=== PATIENT | female | born 1950 | race Caucasian/White ===

== ENCOUNTER → 2023-09-09 13:35 | Outpatient (CLI) | payer OTHER, SELFPAY ==
--- NOTE | 2023-09-09 13:39 | DI.CT.S_ITS ---
PROCEDURE: CT LE LT W CON INDICATIONS: Left ankle and foot deformity surgical planning TECHNIQUE: Noncontrast 1-1.5 mm axial sections acquired from above the tibiotalar joint to the bottom of the calcaneus, with coronal and sagittal reformats. COMPARISON: [facility], CR, XR FOOT 3 VIEWS WEIGHT BEARING RIGHT, 07/23/2023, 14:50. FINDINGS: Image quality: Excellent. Bones: Hindfoot varus Metatarsal adductus. Moderate degenerate changes of the 1st metatarsophalangeal joint. Small sclerotic lesion in the 4th metatarsal distal diaphysis, nonspecific and may represent a bone island. Chronic changes of the 5th metatarsal, likely representing a healed fracture. 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 Moderate degenerative changes of the posterior subtalar joint. Large Stieda process.. Moderate degenerative changes at the anterior subtalar joint. No acute fracture or dislocation. Soft tissues: Moderate fatty atrophy of the flexor hallucis longus at the level of the distal leg. Large tibiotalar and subtalar effusion. Large tenosynovitis of the flexor tendons. The peroneal and extensor tendons are unremarkable. The distal Achilles tendon is unremarkable. IMPRESSION: 1. Hindfoot varus with metatarsus adductus. 2. 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 Moderate degenerative changes of the subtalar joint. 3. Large tibiotalar and subtalar fusion. Large tenosynovitis of the flexor tendons. Dictated by: Fatuma Pratt M.D. on 09/09/2023 at 14:51 Approved by: Fatuma Pratt M.D. on 09/09/2023 at 15:01
== END ==
LOC: CT 13:38
PROVIDERS: PCP Internal Medicine; Referring Provider Orthopaedic Surgery Foot and Ankle Surgery; Visit Provider Orthopaedic Surgery Foot and Ankle Surgery
DX: M21.6X2 Other acquired deformities of left foot (principal); M65.872 Other synovitis and tenosynovitis, left ankle and foot; M24.672 Ankylosis, left ankle; M24.575 Contracture, left foot
CPT/HCPCS: 73700

== ENCOUNTER → 2023-10-21 15:10 | Outpatient (CLI) | payer OTHER, SELFPAY ==
--- NOTE | 2023-10-21 15:35 | EKG_ITS ---
[address] [address] Test Date: 2023-10-21 Pat Name: Mame Zamarripa Department: [facility] Room: Gender: Female Data Review Specialist: ANGÉLICA : 1950 Requested By: Order Number: [id number] Reading MD: Oumar Cantu Measurements Intervals [place] Rate: 71 P: 51 SC: 156 QRS: -24 QRSD: 82 T: 37 QT: 402 QTc: 436 Interpretive Statements Normal sinus rhythm Electronically Signed On 10-23-2023 18:36:04 PDT by Oumar Cantu
[2023-10-21 16:28] LABS: Add Manual Diff / Slide Review NO; Basophils Absolute Auto 0 /uL (0-100); Basophils Percent Auto 0.7 % (0-2); Eosinophils Absolute Auto 300 /uL (0-450); Eosinophils Percent Auto 6.7 % (2-4); Hematocrit 37.6 % (36-46); Hemoglobin 12.7 g/dL (12.0-16.0); Lymphocytes Absolute Auto 1400 /uL (1100-4500); Lymphocytes Percent Auto 27.4 % (25-40); Mean Corpuscular HGB Conc 33.8 % (30-36); Mean Corpuscular Hemoglobin 28.3 PG (26-34); Mean Corpuscular Volume 83.8 fL (80-100); Monocytes Absolute Auto 500 /uL (0-900); Monocytes Percent Auto 8.9 % (3-14); Neutrophils Absolute Auto 2900 /uL (1500-7000); Neutrophils Percent Auto 56.3 % (50-75); Platelet Count 231 X10^3/uL (150-400); Red Blood Cell Count 4.48 X10^6/uL (4.0-5.2); Red Cell Distribution Width 14.4 % (11.6-14.8); White Blood Cell Count 5.2 X10^3/uL (4.5-11.0)
[2023-10-21 16:53] LABS: BUN Creatinine Ratio 25.5 (6-22); Blood Urea Nitrogen 24 mg/dL (7-17); Calcium 8.9 mg/dL (8.4-10.2); Carbon Dioxide 27 mmol/L (22-32); Chloride 109 mmol/L (98-107); Estimated Glomerular Filt Rate > 60 mL/min (>60); Glucose 99 mg/dL (80-110); HEMOLYSIS < 15 (0-50); Potassium 4.3 mmol/L (3.4-5.1); Sodium 138 mmol/L (137-145)
== END ==
PROVIDERS: PCP Internal Medicine; Referring Provider Orthopaedic Surgery Foot and Ankle Surgery; Visit Provider Orthopaedic Surgery Foot and Ankle Surgery
DX: Z01.818 Encounter for other preprocedural examination (principal); Z01.812 Encounter for preprocedural laboratory examination
CPT/HCPCS: 36415; 80048; 85025; 93005

== ENCOUNTER 2023-11-20 07:05 | Day surgery (SDC) | payer OTHER, SELFPAY ==
[2023-11-13 14:46] VITALS: BMI 26.6
[2023-11-20] VITALS (18 sets, daily range): BP systolic 106–152; BP diastolic 75–100; PULSE 61–100; RESP 12–20; TEMP 36.1–37.1; O2SAT 93–100; BMI 26.6
--- NOTE | 2023-11-20 | DI.RAD.S_ITS ---
PROCEDURE: XR ANKLE LT MIN 3V INDICATIONS: INTRAOP + OPEN ANKLE FUSION LEFT TECHNIQUE: Eight intraoperative fluoroscopic images COMPARISON: None. FINDINGS: Eight intraoperative fluoroscopic images of ORIF of the left ankle. Fluoroscopic time is 8.04 seconds. Please see operative report for details. IMPRESSION: ORIF of the left ankle. Please see operative report for details. Dictated by: Esme Vera M.D. on 11/20/2023 at 17:04 Approved by: Esme Vera M.D. on 11/20/2023 at 17:05
--- NOTE | 2023-11-20 08:02 | PM.PREOP ---
Pre-operative Note Interval Note History & Physical reviewed/Exam performed by Physician: Yes Changes to H&P: No
[2023-11-20] MEDS: LACTATED RINGERS 1,000 ML 42 ML IV ×2 (08:05→11:13)
--- NOTE | 2023-11-20 08:09 | PM.OP.1 ---
Operative Date/Time/Diagnoses Date of procedure: 11/20/23 Time of procedure: 09:30 Pre-op diagnosis: Left ankle arthritis, left subtalar arthritis, left talonavicular arthritis and calcaneocuboid arthritis, Achilles contracture, hindfoot varus deformity Post-op diagnosis: same Procedure & Clinicians Procedure: Vasquez talar arthrodesis left ankle CPT code 68874 left Fusion cuboid calcaneal joint CPT code 45751 left Osteotomy fibula distal CPT code 08757 left Open lengthening left Achilles tendon CPT code 64061 left separate site modifier 59 Same procedure as scheduled: Yes Indications: The patient is a 73-year-old female with a 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 And equinus contracture. 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 She may require staged forefoot correction following her hindfoot correction-if this is necessary it would be no sooner than least 6 weeks after the hindfoot fusion to allow for incision healing. The risks and benefits of the procedure have been discussed with the patient and given the opportunity to ask questions. The risks of surgery include but are not limited to infection, malunion, nonunion, persistence of pain, damage to nerves and blood vessels, posttraumatic arthritis, DVT, PE, cardiopulmonary complications and . The patient expressed a thorough understanding of the risks and benefits of surgery and has elected to proceed. Consent was signed. Patient will utilize aspirin 325 mg daily postop starting postop day 1 for DVT prophylaxis We discussed the use of bone graft. During the operation, the services of a physician ophthalmic surgical assistant were medically indicated and necessary to provide the exposure of the operative site for the surgical procedure and to maintain the limb in a proper position to carry out the operation safely and efficiently. Without a qualified carpenter assistant installer being present this would extended the operative procedure and made the procedure technically more difficult to perform. Surgeon: Fanta Jeffers Transportation Sales Consultant: Arik Diaz Anesthesia Type: General, Peripheral nerve block and Local Operative Notes Findings: Rigid hindfoot varus and adductus deformity equinovarus. End-stage tibiotalar and hindfoot arthritis, Achilles contracture Closure Type: primary Specimen(s): none sent Prosthetic devices, grafts, tissues, transplants, or devices: Stacie Biomet Greene nail 150 mm x 10 mm Interlocking screws 5 mm x 44 mm, 5 mm x 28 mm, 5 mm x 26 mm, 5 mm x 44 mm, 5 mm x 65 mm, Biomet Stacie stratum foot plating system small talonavicular plate with 3.5 locking and nonlocking screws 6.5 and 4.5 cannulated screws from the Stacie Biomet set 3 cc Azra augment bone graft 15 cc of cancellous chips Estimated Blood Loss (mL): 200 Blood products transfused: none Tourniquet time (min): 189 Procedure in detail: Patient was seen in the preoperative area the site of surgery marked informed consent confirmed this was the left lower extremity. A preoperative regional block was placed by the anesthesia team for postoperative pain control. The patient was brought back to the operating positioned supine. A Clark was placed. A well-padded thigh tourniquet was placed. All bony prominences were well padded. Anesthetic was administered. An SCD was placed on the contralateral lower extremity. Attention was turned to the left leg left leg was prepped and draped in standard sterile fashion a formal time-out procedure was performed confirming the patient's side and site of surgery administration of appropriate preoperative antibiotic. All were in agreement. Antibiotics were redosed at 4 hours, appropriately. Attention turned to the leg there was an equinus contracture. The leg was elevated held in with a dorsiflexion stress. A 3 separate open incision [place] style brenda section lengthening of the Achilles was performed with separate incisions 2 cm apart the distal and proximal incisions were brenda sections to the medial side and the middle incision was a brenda section to the lateral side. This provided a palpable and audible stretch and increased range of motion appropriate with the Achilles lengthening. Attention turned to the leg Esmarch was used for exsanguination and the tourniquet raised on the thigh to 250 mm of mercury. This stayed elevated for 2 hours and then was let down for an hour and then re elevated for another 69 minutes. Long incision laterally was made over the distal fibula this was taken down to the bone with dissection the peroneal tendons were reflected posteriorly and the periosteum off the fibula anterior and posterior. Incision was extended distally to the level of the calcaneocuboid joint. The ankle subtalar and calcaneal cuboid joints was exposed. Next attention was turned medially and a separate incision was made over the medial malleolus and medial ankle periosteal dissection was taken anterior and posterior to the tibia. The posterior tibialis tendon was released at the level of the medial malleolus. Careful dissection was taken anterior and posterior to the distal tibia at the level of the tibiotalar joint and the eburnated bone of the joint was exposed. A K-wire was used through the distal fibula just across the distal fibula and subchondral area of the tibia to the medial malleolus for the level of the osteotomy of the distal fibula as well as a flat cut of the tibia across the subchondral bone and medial malleolus to help with the correction of the deformity. This was completed and the bone removed and remaining articular surfaces removed. Next a guidewire was used across the talus for the talar flat cut and this was completed. Next attention was turned to the subtalar joint this was distracted with a K-wire distractor and the bone was prepared using curette and a bur. Trial reduction was made this was checked under fluoroscopy. There was residual heel varus therefore a closing wedge osteotomy was made with a saw through the subtalar joint which helped correct the hindfoot varus once this was completed provisional pinning of the subtalar and the ankle joint was completed and checked under multiplanar fluoroscopy. The guidewire for the hindfoot cat was then placed through an incision on the plantar foot and directed in the appropriate trajectory across the calcaneus talus and tibia. Once this was appropriately placed was overdrilled with the opening drill and then reamed sequentially from 8-11. A 10 x 150 mm nail was selected and advanced. Once this was positioned at the appropriate depth it was secured in the talus with the dynamic slot and then in the tibia with medial to lateral screws 1 dynamic and 1 static. Next compression across the tibiotalar joint was completed with the internal mechanism. Then attention was turned to the subtalar joint this was compressed externally and then the lateral to medial calcaneal screw and posterior to anterior calcaneal screws were applied. A separate cannulated screw was placed outside of the nail across the calcaneus talus and tibia for additional support and compression. Next attention was turned to the talonavicular joint into the calcaneocuboid joint. These were separately prepped with flat cut using the TTS saw and removing any remaining cartilage. This allowed a correction of the varus deformity de rotating the foot making sure the tibial crest and 2nd toe were in alignment. The calcaneocuboid and talonavicular joints were then pinned in place and x-rays checked for appropriate alignment. The calcaneocuboid joint was drilled and fused using a 6.5 partially threaded lag screw. The talonavicular joint was fused using a 4.0 cannulated screw and a small Stratum compression plate this was placed in the standard fashion drilling for the tines and then with a ramp compression mechanism and a combination of locking and nonlocking screws. This provided excellent fixation and alignment on x-ray. Wounds were irrigated. Around all of the fusion sites were packed with a mixture of autograft from the patient allograft cancellous chips and the 3 cc of augment platelet derived growth factor bone graft was injected into the void particularly around the talonavicular joint and subtalar joint and tibiotalar joint. This was completed deep tissue was closed with 2-0 Vicryl subcutaneous with 2-0 Vicryl and 3-0 nylon. Tourniquet had been released prior to closure and hemostasis was achieved. The toes pinked up well. There was very good achieved alignment with a plantar grade foot the end of the case. Patient was noted to have some hypermobility through the 1st ray and has some residual adductus. We will previously discussed any additional forefoot deformities would be addressed at a separate surgery. 30 cc of 0.25% Marcaine with epinephrine were injected for local anesthetic. A sterile dressing with Xeroform gauze ABD pads Webril bulky Bragg cotton and a posterior and U splint were applied in neutral position. The patient was woken from anesthesia and taken to recovery area in good condition there were no immediate complications from this procedure. All counts were correct. Complications: none Post-operative Condition: stable Disposition: PACU Plan for aftercare: Touchdown or nonweightbearing left lower extremity 8-12 weeks. Aspirin for DVT prophylaxis. Follow up in Orthopedic Clinic as scheduled. For conversion of splint to cast.. May need additional forefoot correction after hindfoot correction has healed.
--- NOTE | 2023-11-20 08:58 | SUR.PREOP ---
Block start time [838] . Monitoring initiated and maintained throughout procedure. Oxygen and medications given per anesthesiologist instructions. Patient remained stable throughout procedure, no adverse reactions noted. Block end time [858].
[2023-11-20] MEDS: CEFAZOLIN 2 GM/100 ML PREMIX 100 ML IV ×3 (09:13→20:49)
[2023-11-20] MEDS: ACETAMINOPHEN IV 1,000 MG/100 ML VIAL 400 MG IV (09:27)
--- NOTE | 2023-11-20 09:38 | SUR.OPER ---
Supine on padded OR bed, head on pillow, arms secured on padded arm boards at <90 degrees abduction, legs uncrossed, safety belt at thigh, tape over blanket over non operative lower leg, operative leg resting on a bump of blankets.
[2023-11-20] MEDS: BUPIVACAINE 0.25% (PF) 30 ML, EPINEPHrine 0.15 MG INJ (09:48)
[2023-11-20] MEDS: OXYCODONE IR 5 MG TABLET PO (14:58)
[2023-11-20] MEDS: HYDROMORPHONE 2 MG TABLET PO ×2 (15:25→16:41)
[2023-11-20] MEDS: LACTATED RINGERS 1,000 ML 100 ML IV (15:28)
[2023-11-20] MEDS: ACETAMINOPHEN 325 MG TABLET 650 MG PO ×2 (15:29→23:03)
[2023-11-20] MEDS: HYDROMORPHONE 0.5 MG INJ IV ×3 (17:54→23:04)
--- NOTE | 2023-11-20 18:58 | PC.NURSE ---
Patient arrived this afternoon from PACU, A&Ox4, VSS, afebrile on RA. LLE with soft cast and Gopi wrap, C/d/I. +CMS to toes. She reports pain increasing this evening to 8/10 pain, although FLACC score was 6. Patient had not voided since prior to surgery and felt urge to void, but unable. Bladder scan results wer 43ml. Patient declined eating dinner this kirsten but tolerating water well. IVF LR at 100 ml/hr. supportive at bedside. Patient educated that weight bearing restricted to toe touch only on the left.
[2023-11-20] MEDS: SENNOSIDES 8.6 MG TABLET 17.2 MG PO (20:49)
[2023-11-20] MEDS: DOCUSATE 100 MG CAPSULE PO (20:49)
[2023-11-21] MEDS: HYDROMORPHONE 2 MG TABLET PO ×3 (01:41→11:35)
[2023-11-21 03:15] VITALS: BP 103/65; PULSE 60; RESP 16; TEMP 36.5; O2SAT 94
[2023-11-21] MEDS: ACETAMINOPHEN 325 MG TABLET 650 MG PO ×2 (04:41→11:41)
[2023-11-21] MEDS: CEFAZOLIN 2 GM/100 ML PREMIX 100 ML IV (04:42)
[2023-11-21 05:03] LABS: Add Manual Diff / Slide Review NO; Basophils Absolute Auto 0 /uL (0-100); Basophils Percent Auto 0.2 % (0-2); Eosinophils Absolute Auto 0 /uL (0-450); Hematocrit 29.6 % (36-46); Lymphocytes Absolute Auto 1100 /uL (1100-4500); Lymphocytes Percent Auto 10.4 % (25-40); Mean Corpuscular Volume 85.3 fL (80-100); Monocytes Absolute Auto 900 /uL (0-900); Monocytes Percent Auto 8.6 % (3-14); Neutrophils Absolute Auto 8900 /uL (1500-7000); Neutrophils Percent Auto 80.8 % (50-75); Platelet Count 194 X10^3/uL (150-400); Red Blood Cell Count 3.47 X10^6/uL (4.0-5.2); Red Cell Distribution Width 15.1 % (11.6-14.8)
[2023-11-21 05:17] LABS: BUN Creatinine Ratio 19.8 (6-22); Blood Urea Nitrogen 17 mg/dL (7-17); Calcium 7.6 mg/dL (8.4-10.2); Carbon Dioxide 27 mmol/L (22-32); Chloride 102 mmol/L (98-107); Estimated Glomerular Filt Rate > 60 mL/min (>60); Glucose 135 mg/dL (80-110); HEMOLYSIS < 15 (0-50); Potassium 4.6 mmol/L (3.4-5.1); Sodium 134 mmol/L (137-145)
[2023-11-21] MEDS: LEVOTHYROXINE 50 MCG TABLET PO (05:21)
[2023-11-21] MEDS: ONDANSETRON 4 MG/2 ML INJ IV (05:38)
--- NOTE | 2023-11-21 07:30 | PM.PNPO.1 ---
Subjective Subjective Date Patient Seen: 11/21/23 Time Patient Seen: 07:31 Interval history: Pain is [id number]. Denies fever or chills. Patient had some nausea this morning with vomiting x2. Overall feeling better now. Patient does have assistance at home. She has not been out of bed since surgery. Exam Vital Signs (past 8 hours): - 11/21/23 03:15 Temperature 97.7 F Pulse Rate 60 Respiratory Rate 16 Blood Pressure 103/65 Pulse Oximetry 94 Oxygen Flow Rate 0 Oxygen Delivery Method Room Air Oxygen Flow Rate 0 Narrative Exam Narrative: 73-year-old female resting comfortably in bed in no apparent distress. Splint is in place left lower extremity. Good capillary refill. Sensation grossly intact to light touch. Const General: cooperative and comfortable Nutritional Appearance: average body habitus Orientation: alert Resp Effort & Inspection: normal respiratory effort and able to speak in complete sentences Objective Labs 11/21/23 03:59 11/21/23 03:59 Labs: Laboratory Results - last 24 hr 11/21/23 03:59 WBC 11.0 RBC 3.47 L Hgb 10.0 L Hct 29.6 L MCV 85.3 MCH 29.0 MCHC 34.0 RDW 15.1 H Plt Count 194 Neut % (Auto) 80.8 H Lymph % (Auto) 10.4 L [place] % (Auto) 8.6 Eos % (Auto) 0.0 L Baso % (Auto) 0.2 Neut # (Auto) 8900 H Lymph # (Auto) 1100 [place] # (Auto) 900 Eos # (Auto) 0 Baso # (Auto) 0 Sodium 134 L Potassium 4.6 Chloride 102 Carbon Dioxide 27 BUN 17 Creatinine 0.86 Estimated GFR > 60 BUN/Creatinine Ratio 19.8 Glucose 135 H Calcium 7.6 L PFSH Medical History (Updated 11/13/23 @ 14:54 by Caroline Carrasco RN) Seasonal allergies Hypothyroid HLD (hyperlipidemia) Thyroid nodule Surgical History (Updated 11/13/23 @ 14:59 by Caroline Carrasco RN) History of orthopedic surgery (06/13/23) Hx of tonsillectomy Hx of LASIK H/O right cataract extraction (2008) H/O left cataract extraction (2012) S/P thyroid biopsy (~2007) Hx of foot surgery Social History household members: spouse Smoking Status: Never smoker alcohol intake: never Assessment & Plan Post-op Postoperative Procedures: Procedures Operation Date: 11/20/23 08:45 Actual Procedure Side Surgeon p open Ankle Fusion & subtalar joint fusion with hindfoot nail, fibular osteotomy and bone graft autograft or allograft, talonavicular and calcaneocubiod fusions, Left Fanta Jeffers MD s Possbile Achilles Tendon Lengthening, peroneal tendon excision and flexor tendon release or lengthening as indicated Left Fanta Jeffers MD Postoperative day: 1 Postoperative status: doing well Postoperative status narrative: Stable Postoperative plan narrative: Toe-touch or nonweightbearing left lower extremity for 8-12 weeks Aspirin for DVT prophylaxis Patient will mobilize with physical therapy and likely discharge home later today Quality VTE Deep Vein Thrombosis/Pulmonary Embolism Present on Admission: No
[2023-11-21] MEDS: CALCIUM CARBONATE 500 MG TAB 1000 MG PO ×2 (07:42→12:38)
[2023-11-21] MEDS: HYDROMORPHONE 0.5 MG INJ IV (07:50)
[2023-11-21 08:00] VITALS: BP 95/63; PULSE 85; RESP 19; TEMP 36.4; O2SAT 93
[2023-11-21] MEDS: ASPIRIN EC 81 MG TABLET 325 MG PO (08:39)
[2023-11-21] MEDS: DOCUSATE 100 MG CAPSULE PO (08:39)
[2023-11-21] MEDS: SODIUM CHLORIDE 0.9% FLUSH 10 ML IV (08:40)
--- NOTE | 2023-11-21 09:50 | OT.IP.EVAL ---
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) Surgery Performed Operation Date: 11/20/23 08:45 Actual Procedures p open Ankle Fusion & subtalar joint fusion with hindfoot nail, fibular osteotomy and bone graft autograft or allograft, talonavicular and calcaneocubiod fusions,(Left) - Fanta Jeffers MD s Possbile Achilles Tendon Lengthening, peroneal tendon excision and flexor tendon release or lengthening as indicated(Left) - Fanta Jeffers MD Past Medical History (Last Updated 11/13/23 @ 14:54 by Caroline Carrasco, RN) HLD (hyperlipidemia) Hypothyroid Seasonal allergies Thyroid nodule Surgical History (Last Updated 11/13/23 @ 14:59 by Caroline Carrasco RN) H/O left cataract extraction (2012) H/O right cataract extraction (2008) History of orthopedic surgery (06/13/23) Hx of foot surgery Hx of LASIK Hx of tonsillectomy S/P thyroid biopsy (~2007) Occupational Therapy Inpatient Evaluation/Re-Eval M1 PT/OT-IP Prior Functional Status Start: 11/21/23 09:56 Freq: NEEDED Status: Active Protocol: Document 11/21/23 08:55 [facility] (Rec: 11/21/23 10:26 [facility] [id number]) Medical Review Prior Functional Status Communication Independent Mobility and Gait Pt was able to use a 4ww for all mobility needs. Activities of Daily Living and IADL's Pt independent with all ADL and IADL needs. Social History Household Members spouse Living Arrangements House Number of Floors (Floors) One Floor Number of Stairs To Enter/Railing? Pt has a ramp that goes over the 3 steps at home. Home Environment High Toilet,Walk in Shower Home Equipment Four Wheel Walker,Manual Wheelchair,Shower Seat without Backrest,Hand Held Shower, Grab Bars Near Toilet M2 OT-IP Current Condition Start: 11/21/23 09:56 Freq: Status: Active Protocol: Document 11/21/23 08:55 [facility] (Rec: 11/21/23 10:26 [facility] [id number]) Occupational Therapy Current Condition Current Condition Evaluation Date 11/21/23 Treatment Diagnosis S/P L ankle fusion/achilles tendon lengthening Weight Bearing Status Weight Bearing Status Touch Down Weight Bearing Allowed Weight Bearing Amount (enter % LLE TTWB or #) (%) M3 OT- IP Subjective and Pain Start: 11/21/23 09:56 Freq: Status: Active Protocol: Document 11/21/23 08:55 [facility] (Rec: 11/21/23 10:26 [facility] [id number]) OT- Subjective Occupational Therapy Visit Type Type Initial Evaluation Visit Start Time 08:55 Visit Stop Time 09:50 Occupational Therapy Visit Comments Patient Comments Pt agreed to get up. Patient/Caregiver Goals To go home. OT Pain Assessment Pain When Pain Assessed At Rest Pain Present Pain Present Pain Reported Location left foot Intensity 2 Scale Used Numeric (0 - 10) M4 OT- IP ADL's Start: 11/21/23 09:56 Freq: Status: Active Protocol: Document 11/21/23 08:55 [facility] (Rec: 11/21/23 10:26 [facility] [id number]) OT [id number] General Evaluation Self-Feeding Ability Independent OT ADL-Grooming Comments OT Grooming Comments Pt states to do later as feeling nauseous. OT ADL-Oral Care Comments Oral Care Comments Not performed. OT ADL-Dressing Comments OT Dressing Comments Pt issued director of outpatient services and spoke of LB dressing needs. OT ADL-Toileting Comments OT Toileting Comments Suggested pt get a BSC. Pt had Purewick in place. OT ADL-Bathing Comments OT Bathing Comments Suggested best to use a tub bench to be able to get into the shower. M5 OT- IP IADL's Start: 11/21/23 09:56 Freq: Status: Active Protocol: Document 11/21/23 08:55 [facility] (Rec: 11/21/23 10:26 [facility] [id number]) OT-Instrumental Activities of Daily Living Home Safety Awareness Awareness of Need for Assistance at Home Good Awareness Ability to Problem Solve Emergency Able to Problem Solve Situations Home Safety Comments Pt's able to assist. Medication Management Medication Management No Deficits Identified Money Management Money Management No Deficits Identified Meal Preparation Meal Preparation Comments Pt's to assist. Welfare Centre Manager Welfare Centre Manager Comments Pt's to assist. M6 OT- IP Functional Cognition Start: 11/21/23 09:56 Freq: Status: Active Protocol: Document 11/21/23 08:55 [facility] (Rec: 11/21/23 10:26 [facility] [id number]) Cognitive Factors Limiting Selfcare Function Cognitive Ability Level of Alertness Alert Patient Orientation Name,Age,Birthday,Month,Date, Year,Day of Week,Place, Situation Ability to Follow Commands Able to Follow Multi-Step Commands Memory Description No Deficits Noted Safety Awareness No Deficits Noted Cognitive Comments Cognitive Assessment Comments Pt is intact. OT- Vision and Hearing OT- Hearing Assessment OT- Hearing Assessment WFL OT- Vision Assessment Visual Acuity Glasses For Reading Visual Attentiveness WFL Occular Pursuits WFL M7 OT- IP Mobility and Balance Start: 11/21/23 09:56 Freq: Status: Active Protocol: Document 11/21/23 08:55 [facility] (Rec: 11/21/23 10:26 [facility] [id number]) OT- Bed Mobility Assessment Supine to Sit Supine to Sit Assist Contact Guard Assistance OT-Transfer Assessment Sit to and From Stand Sit to and from Stand Minimal Assistance Transfers Transfer Ability Minimal Assistance Technique Transfer Destination Bed,Chair Transfer Technique Stand Step Pivot Devices Transfer Assistive Devices Gait Belt,Front Wheeled Walker Comments Mobility Comments CGA to get out on the left side of the bed. MARIA LUZ to stand with the FWW. Pt initially needing MAXA with FWW management and then improved to MARIA LUZ to be able to transfer to the recliner. OT- Balance Assessment Sitting Balance and Reactions Static Sitting Balance Ability Normal Dynamic Sitting Balance Ability Good Standing Balance and Reactions Static Standing Balance Ability Good Dynamic Standing Balance Ability Fair M8 OT- IP Objective Assessments Start: 11/21/23 09:56 Freq: Status: Active Protocol: Document 11/21/23 08:55 [facility] (Rec: 11/21/23 10:26 [facility] [id number]) OT Gross Range of Motion Upper Extremity Range of Motion Assessment Within Functional Limits OT Strength Upper Extremity Strength Assessment Within Functional Limits M9 OT- IP Assessment and Plan Start: 11/21/23 09:56 Freq: Status: Active Protocol: Document 11/21/23 08:55 [facility] (Rec: 11/21/23 10:26 [facility] [id number]) OT Summary Assessment and Plan Potential Rehabilitation Potential Excellent Analytic Complexity at Evaluation Low Summary OT Impairments Pain,Strength,Balance, Functional Mobility,Dressing, Toileting,Bathing,Toilet Transfers,Shower Transfers, Activity Tolerance Progress Towards Goals Progressing Toward Goals Assessment Summary Pt low complexity and main barriers are pain and will benefit from more practice of her TTWB for transfers. Able to issue pt FWW and ADL dressing equipment. Pt would benefit from home health at home. Pt to go home with 24/7 assist. Goals Grooming Goal Independent Dressing Goal Independent,Long Handled Shoe Horn,Lump Maker Toileting Goal Independent Bathing Goal Standby Assistance Toilet Transfer Goal Independent Shower Transfer Goal Standby Assistance Days to Meet Goals 7 Frequency of Treatment Frequency Of Treatment Once a Day Treatment Plan OT Treatment Plan ADL Training,Functional Mobility,Patient/Family Education,Discharge Planning Discharge Recommendations OT Discharge Recommendations Home with 24/7 Assist Available,Home Health Home Equipment Needs BSC, tub bench Transportation Needs at Discharge Private Vehicle
--- NOTE | 2023-11-21 10:09 | PT.IIE ---
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) Surgery Performed Operation Date: 11/20/23 08:45 Actual Procedures p open Ankle Fusion & subtalar joint fusion with hindfoot nail, fibular osteotomy and bone graft autograft or allograft, talonavicular and calcaneocubiod fusions,(Left) - Fanta Jeffers MD s Possbile Achilles Tendon Lengthening, peroneal tendon excision and flexor tendon release or lengthening as indicated(Left) - Fanta Jeffers MD Surgical History (Last Updated 11/13/23 @ 14:59 by Caroline Carrasco RN) H/O left cataract extraction (2012) H/O right cataract extraction (2008) History of orthopedic surgery (06/13/23) Hx of foot surgery Hx of LASIK Hx of tonsillectomy S/P thyroid biopsy (~2007) Medical History (Last Updated 11/13/23 @ 14:54 by Caroline Carrasco RN) HLD (hyperlipidemia) Hypothyroid Seasonal allergies Thyroid nodule Physical Therapy Inpatient Evaluation/Re-Eval M1 PT/OT-IP Prior Functional Status Start: 11/21/23 08:24 Freq: NEEDED Status: Active Protocol: Document 11/21/23 08:58 [facility] (Rec: 11/21/23 10:09 [facility] [id number]) Medical Review Prior Functional Status Medical History Reviewed Yes Diet/Fluid Consistency Regular Communication WNLs Mobility and Gait Mobilized with 4WW at home Activities of Daily Living and IADL's Pt lives with and pt is mostly I at home Social History Household Members spouse Living Arrangements House Number of Floors (Floors) One Floor Number of Stairs To Enter/Railing? Ramp to be set-up to enter home Home Environment High Toilet,Walk in Shower Home Equipment Four Wheel Walker,Manual Wheelchair,Shower Seat without Backrest,Hand Held Shower, Grab Bars Near Toilet,Grab Bars In Shower Employment Status Retired M2 PT-IP Current Condition Start: 11/21/23 08:24 Freq: NEEDED Status: Active Protocol: Document 11/21/23 08:58 [facility] (Rec: 11/21/23 10:09 [facility] [id number]) Physical Therapy Current Condition Current Condition Evaluation Date 11/21/23 Treatment Diagnosis L ankle fusion M3 PT-IP Subjective Start: 11/21/23 08:24 Freq: NEEDED Status: Active Protocol: Document 11/21/23 08:58 [facility] (Rec: 11/21/23 10:09 [facility] [id number]) Subjective Physical Therapy Visit Type Type Initial Evaluation Visit Start Time 08:58 Visit Stop Time 09:28 Number of ECONOMIC RESEARCH ANALYST Visits 0 Physical Therapy Visit Comments Patient Comments Pt states her BP was low this morning and she has some nausea after mobility. Therapy Pain Assessment Pain When Pain Assessed At Rest Pain Present Pain Present Pain Reported Location left foot Intensity 2 Scale Used Numeric (0 - 10) M4 PT-IP Mobility and Gait Start: 11/21/23 08:24 Freq: NEEDED Status: Active Protocol: Document 11/21/23 08:58 [facility] (Rec: 11/21/23 10:09 [facility] [id number]) PT-Bed Mobility Assessment Supine to Sit Supine to Sit Contact Guard Assistance,1 Person Assistance,Head of Bed Elevated Scooting Scooting to Edge of Bed Contact Guard Assistance Scooting Up and Down in Bed Contact Guard Assistance PT-Transfer Assessment Sit to and From Stand Sit to and from Stand Minimal Assistance,1 Person Assistance,Use of Upper Extremities Equipment Transfer Assistive Device Gait Belt,Front Wheeled Walker Transfers Transfer Destination Chair Transfer Technique Hop gait Transfer Ability Level of Assist Minimal Assistance,1 Person Assistance,Use of Upper Extremities Comments Mobility Comments Pt has cast donned. PT provides cues for TDWB left foot and pt tends to perform NWB and short hops. Initially, PT cues pt for step-to gait and PT must move walker with max A but after practice, pt moves walker as well and overall, gait does not require more than min A for forward and backward steps. BP was stable with supine to sit and then once in chair. Gait Assessment Gait Gait Assistance Required: Minimum Assistance,Maximum Assistance Distance (Feet) 5 Able to Maintain Weight Bearing Status Yes During Gait Assistive Devices Assistive Device Gait Belt,Front Wheeled Walker Gait Deviations General Gait Pattern Decreased Stride Length, Decreased Feet Clearance, Flexed Trunk,Step-to Gait Factors Limiting Gait Function Factors Limiting Gait Function Decreased Activity Tolerance Comments Gait Comments See comments under mobility, pt does well, will limit gait distance and pt has w/c at home PT-Balance Assessment Sitting Balance and Reactions Static Sitting Balance Ability Good Dynamic Sitting Balance Ability Good Standing Balance and Reactions Static Standing Balance Ability Good Dynamic Standing Balance Ability Good Device Used RW M5 PT-IP Objective Assessments Start: 11/21/23 08:24 Freq: NEEDED Status: Active Protocol: Document 11/21/23 08:58 [facility] (Rec: 11/21/23 10:09 [facility] [id number]) Orientation Orientation/Cognition Level of Alertness Alert Orientation Name,Age,Birthday,Month,Date, Year,Day of Week,Place, Situation Language Function Ability No Deficits Noted Safety Awareness Understands Safety Issues Memory Description No Deficits Noted Gross Range of Motion Upper Extremity ROM Impairments Defer to OT Lower Extremity ROM Assessment Left Impaired Impairments Left ankle is casted Strength Lower Extremity Strength Assessment Left Impaired Comments Strength Comments L ankle casted and right LE is functional M6 PT-IP Treatment Start: 11/21/23 08:24 Freq: NEEDED Status: Active Protocol: Document 11/21/23 08:58 [facility] (Rec: 11/21/23 10:09 [facility] [id number]) Physical Therapy Treatment Education Education Provided Weight Bearing Status,Safety M7 PT-IP Assessment and Plan Start: 11/21/23 08:24 Freq: NEEDED Status: Active Protocol: Document 11/21/23 08:58 [facility] (Rec: 11/21/23 10:09 [facility] [id number]) PT Summary Assessment and Plan Potential Rehabilitation Potential Good Status of Condition at Evaluation Evolving Summary Impairments ROM,Strength,Balance,Bed Mobility,Transfers,Gait, Activity Tolerance Progress Towards Goals Progressing Toward Goals Assessment Summary Pt is a pleasant 73 y/o female who has some lower BP this a. m. but it is stable with therapy this morning. She has mild pain and some nausea when she is up. She does really well with bed mobility and keeping the weight off the left foot and she prefers NWB to TDWB on the left. She has a w/c at home and her will assist at home. Will limit gait distance and attempt another treatment and will consider w/c training if able. Pt will have ramp put in before home entrance. May benefit from HHPT consult for further home safety training. Goals Bed Mobility Goal Independent Transfer Goal Standby Assistance,Front Wheeled Walker Gait Goal Standby Assistance,Front Wheel Walker Gait Distance 25 Other Goals Pt will mobilize in w/c managing mobility for at least 50' including turns and retropulsion with no more than superv. Days to Meet Goals 2 Frequency of Treatment Frequency Of Treatment Twice a Day Treatment Plan Physical Therapy Treatment Plan Bed Mobility Training,Transfer Training,Gait Training, Therapeutic Exercise,Balance Retraining,Post Op Education, Discharge Planning,Hot or Cold Pack,Neuromuscular Re-ed, Coordination Retraining,Manual Therapy Weight Bearing Status Weight Bearing Status Touch Down Weight Bearing Allowed Weight Bearing Amount (enter % LLE or #) (%) Recommendations To Nursing Amount of Assist Needed 1 Person Assist Discharge Recommendations PT Discharge Recommendations Home with 26/11 Assist Available,Home Health Transportation Needs at Discharge Private Vehicle
--- NOTE | 2023-11-21 11:07 | P.DS_ITS ---
History of Present Illness History of Present Illness Date Patient Seen: 11/21/23 Time Patient Seen: 11:07 Chief complaint: Ankle pain Narrative: See progress note Discharge Providers Provider Discharge Date: 11/21/23 Primary care physician: Valerie Wills MD Consults: 11/20/23 15:05 Consult to Discharge Planning Routine Comment: Consult to Occupational Therapy Evaluate & Treat Comment: Physician Instructions: Evaluate and treat Consult to Physical Therapy Evaluate & Treat Comment: ttwb lle Physician Instructions: Evaluate and Treat 11/21/23 09:31 Consult to Physical Therapy Evaluate & Treat Comment: Physician Instructions: FWW for home use Discharge provider: Eldon Mcmahan PA-C Summary Hospital Course Discharge Diagnosis: Pre-op diagnosis: Left ankle arthritis, left subtalar arthritis, left talonavicular arthritis and calcaneocuboid arthritis, Achilles contracture, hindfoot varus deformity Post-op diagnosis: same Hospital Course: Vasquez talar arthrodesis left ankle CPT code 38975 left Fusion cuboid calcaneal joint CPT code 47017 left Osteotomy fibula distal CPT code 92239 left Open lengthening left Achilles tendon CPT code 40664 left separate site modifier 59 Same procedure as scheduled: Yes Indications: The patient is a 73-year-old female with a 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 And equinus contracture. 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 She may require staged forefoot correction following her hindfoot correction-if this is necessary it would be no sooner than least 6 weeks after the hindfoot fusion to allow for incision healing. The risks and benefits of the procedure have been discussed with the patient and given the opportunity to ask questions. The risks of surgery include but are not limited to infection, malunion, nonunion, persistence of pain, damage to nerves and blood vessels, posttraumatic arthritis, DVT, PE, cardiopulmonary complications and . The patient expressed a thorough understanding of the risks and benefits of surgery and has elected to proceed. Consent was signed. Patient will utilize aspirin 325 mg daily postop starting postop day 1 for DVT prophylaxis We discussed the use of bone graft. During the operation, the services of a physician surgical physician assistant were medically indicated and necessary to provide the exposure of the operative site for the surgical procedure and to maintain the limb in a proper position to carry out the operation safely and efficiently. Without a qualified nursing home assistant administrator being present this would extended the operative procedure and made the procedure technically more difficult to perform. Surgeon: Fanta Jeffers Bumper Machine Operator: Arik Diaz Anesthesia Type: General, Peripheral nerve block and Local Operative Notes Findings: Rigid hindfoot varus and adductus deformity equinovarus. End-stage tibiotalar and hindfoot arthritis, Achilles contracture Closure Type: primary Specimen(s): none sent Prosthetic devices, grafts, tissues, transplants, or devices: Stacie [employer] [place] nail 150 mm x 10 mm Interlocking screws 5 mm x 44 mm, 5 mm x 28 mm, 5 mm x 26 mm, 5 mm x 44 mm, 5 mm x 65 mm, Biomet Stacie stratum foot plating system small talonavicular plate with 3.5 locking and nonlocking screws 6.5 and 4.5 cannulated screws from the Stacie [employer] set 3 cc Azra augment bone graft 15 cc of cancellous chips Estimated Blood Loss (mL): 200 Blood products transfused: none Tourniquet time (min): 189 Patient admitted to the hospital for the above-mentioned diagnosis. Patient consented for above-mentioned procedure. Patient underwent surgery back in her room recovering well as in stable condition. Patient to be touchdown or nonweightbearing left lower extremity for 8-12 weeks. Aspirin for DVT prophylaxis. Follow up outpatient orthopedic clinic in 2 weeks as scheduled. May need additional forefoot correction after hindfoot correction has healed. Patient has worked with physical therapy. Patient will be discharged home today in stable condition. Status at Discharge Cognitive/behavioral status at discharge: at baseline, oriented Functional status at discharge: uses cane/walker Overall status at discharge: patient is progressing back to baseline Exam Vital Signs (past 8 hours): - 11/21/23 03:15 11/21/23 08:00 Temperature 97.7 F 97.5 F L Pulse Rate 60 85 Respiratory Rate 16 19 Blood Pressure 103/65 95/63 Pulse Oximetry 94 93 Oxygen Flow Rate 0 0 Oxygen Delivery Method Room Air Oxygen Flow Rate 0 Narrative Exam Narrative: See progress note Objective Labs 11/21/23 03:59 11/21/23 03:59 Labs: Laboratory Results - last 24 hr 11/21/23 03:59 WBC 11.0 RBC 3.47 L Hgb 10.0 L Hct 29.6 L MCV 85.3 MCH 29.0 MCHC 34.0 RDW 15.1 H Plt Count 194 Neut % (Auto) 80.8 H Lymph % (Auto) 10.4 L [place] % (Auto) 8.6 Eos % (Auto) 0.0 L Baso % (Auto) 0.2 Neut # (Auto) 8900 H Lymph # (Auto) 1100 [place] # (Auto) 900 Eos # (Auto) 0 Baso # (Auto) 0 Sodium 134 L Potassium 4.6 Chloride 102 Carbon Dioxide 27 BUN 17 Creatinine 0.86 Estimated GFR > 60 BUN/Creatinine Ratio 19.8 Glucose 135 H Calcium 7.6 L PFSH Medical History Seasonal allergies Hypothyroid HLD (hyperlipidemia) Thyroid nodule Surgical History History of orthopedic surgery (06/13/23) Hx of tonsillectomy Hx of LASIK H/O right cataract extraction (2008) H/O left cataract extraction (2012) S/P thyroid biopsy (~2007) Hx of foot surgery Social History household members: spouse Smoking Status: Never smoker alcohol intake: never Discharge Assessment & Plan Assessment and Plan Assessment: Patient progressing as expected Plan of Treatment: Toe-touch to nonweightbearing left lower extremity for 8-12 weeks Aspirin for DVT prophylaxis Follow up outpatient orthopedic clinic in 2 weeks as scheduled for conversion of splint to cast. Patient has already been prescribed postop pain meds Discharge home today in stable condition Discharge Plan Discharge Plan Patient Disposition: Home Discharge orders & Medications Discharge Orders: Discharge (Order); Ordered 11/21/23 Ordered By: Eldon Mcmahan Prescriptions: Continued levothyroxine 50 mcg Tablet 50 mcg PO DAILY lisinopril 10 mg Tablet 10 mg PO SEEINSTR Patient Comments: 1 tab in am, 2 tabs bedtime Follow up/Referrals: Fanta Jeffers MD [Physician] - 12/03/23 2:00 pm (Follow up at [address] office in [place].) Valerie Wills MD [Primary Care Provider] - Diet/Activity/Treatments Diet: Diet as Tolerated Other treatments: At-Home Instructions - Dr. Jeffers Surgery: Left ankle pantalar fusion, hindfoot nail Cast/Splint/Dressing Care Instructions 1) Keep cast/dressing clean and dry. 2) May bathe - but cast/dressing must remain dry. 3) Should the cast become wet, you need to call your physician's clinic immediately for cast removal and replacement. Moisture can cause skin breakdown and lead to infection if left untreated. 4) Do not stick any sharp object down the cast to itch, as this can cause scrapes/cuts/punctures which can lead to infection. 5) Observe for increasing pain in the extremity with the cast, finger/toe-tips turning blue/purple, or numbness and tingling in your toes/fingers. Should any of these symptoms arise, you need to be seen immediately for evaluation of swelling and increasing compartment pressures within your affected extremity. 6) Keep your affected extremity elevated - Toes Above your Nose? - This is dangelo in the first two weeks after surgery to minimize swelling. 7) You may ice your extremity, being careful to prevent melting ice from saturating into the splint/cast. Activity No heavy lifting greater than 10 pounds. No [address] while on narcotic pain medication. Do not get your dressing/cast/splint wet! You must remain non-weight bearing on your operative extremity. Use crutches or a walker for ambulation. No driving until you are otherwise instructed by your physician. This will be addressed at your first follow-up appointment. Discharge Pain Medications --the patient was issued the following medications from the orthopedic clinic. 1. Hydromorphone 4 mg tablets-1 p.o. q.4 hours as needed pain #40 2. Ondansetron 4 mg disintegrating tablet 4 mg q.8 hours as needed nausea You will be given a prescription for pain medication. You should start taking this the same day after your surgery. Wean off as tolerated. Do not wait to take the pain medication until the pain is severe, as it will be difficult to catch up once this occurs. The pain medication usually reaches its full effect ~1 hour after ingesting. If you have been sent home on Colace, this medication should be taken until you are off all narcotic (i.e. Vicodin, Percocet, Oxycodone, etc) pain medications, to prevent constipation. You may also obtain this or another stool softener over the counter to prevent or alleviate constipation. Percocet or Vicodin have Tylenol in their ingredient lists. You must be careful not to exceed 3,000mg (3 grams) of Tylenol, from all sources, within a single 24-hr period. This means that you may not take more than 10 pills within a 24- hr period. Do NOT take Regular or Extra Strength Tylenol when taking your Percocet or Vicodin medications. -IF you have been given a Toradol/ketorolac prescription, this is a very strong anti-inflammatory. Do not take varz-tld-lsleona anti-inflammatories (ibuprofen, Aleve, Advil, Motrin) while taking the Toradol/ketorolac. Once you are finished with this prescription, then you can resume mxvt-wbe-bpcexct anti- inflammatories. You can still take your narcotic pain medication and Tylenol while taking the Toradol/ketorolac. -Some common side effects of the narcotic pain medications (Percocet, Oxycodone, Vicodin, hydromorphone, etc.) include nausea and itching. Benadryl is a great over the counter medication that helps calm your stomach, decreases your anxiety levels, and minimizes the itching. You can easily purchase this at your local pharmacy as an atpd-[id number]-[id number] medication. Please abide by the instructions as printed on the bottle. If your nausea persists, make sure to take small amounts of crackers or other garnett machine operator foods. -If have been given oxycodone 5 mg tablets, try to take the smallest dose needed to control your pain. Generally start with 5 mg every 4 hours as needed for pain. However you can increase this if you are having significant pain. The maximum dosage for oxycodone would be 15 mg or three (5 mg) tablets p.o. every 3 hours as needed for pain. As soon as pain is better controlled you should decrease the amount of medication your taking and increase the interval between doses. If you are given Percocet or Vicodin or [place] these are medications with the narcotic and Tylenol in them and they were dosing will need to keep in mind the maximum daily dosages for Tylenol/acetaminophen. Follow-Up/Emergency Contacts Please call for an appointment in either [place] or [place], if one has not been scheduled. Follow up 2 weeks after surgery. [phone] Contact the office if you have any of the following: ? Painful swelling or numbness ? Unrelenting pain ? Fever (over 101?- it is normal to have a low grade fever for the first day or two following surgery) or chills ? Redness around the incisions ? Color changes ? Continuous bleeding or drainage from the incision (a small amount is expected) ? Excessive nausea or vomiting ? Difficulty breathing If you have an emergency that requires immediate attention such as shortness of breath or chest pain, call 911 or proceed to the nearest emergency room. Blood Clot Prophylaxis You will need to complete a total 6-week (42 days) course of Aspirin enteric coated (325 mg daily) after surgery, to minimize the risk of blood clots following surgery. You may alternatively purchase or use whzg-cre-pavsyqw generic equivalent Aspirin. If you already have ?baby? Aspirin (81mg) at home, you can take 4 ?baby? Aspirin ( daily) to total 324mg for the equivalent dose. If you have gastric upset with this or a history of gastric bleeding or ulcers, do not take aspirin, please call the office for alternatives. Commence foot and ankle. knee pumps and movement with the nonoperative leg to keep your blood moving and help prevent clots. You can also obtain compression socks of antiembolism hose (SHAUN) hose from the drug store to wear on the nonoperative leg and also on the operative leg once the splint or cast is removed. Adjust your position or get up onto your crutches every hour or so just to move around. Pain Medications: It is the policy of [facility] that narcotic medications will only be refilled during office hours. Additionally, due to the alarming rate of narcotic pain medication abuse/dependence, it has become necessary for physician practices to closely manage patient use of prescription narcotic pain relievers, such as Vicodin ([place]), Percocet, and Oxycodone products. Narcotic pain management in the postoperative period may not exceed 6 weeks. If narcotic pain management is required beyond 90 days, then a referral to a Chronic Pain Specialist will be made. If a request for a medication prescription has been made, the physician must review your chart prior to authorizing the request. Please be patient with office staff. If you call during patient hours, your call may not be returned until the end of the day. Dr. Fanta Jeffers [address] [email or web address] Skin/Wound/Dressing Care Report to your healthcare provider any signs of infection, such as:: chills, fever, night sweats, increased pain, unusual drainage and unusual redness Visit Report/Discharge Packet Instructions: DI for Prescription Opioid Use Stand Alone Forms: Patient Portal/API, Surgery Discharge Discharge Data Primary Care Provider: Valerie Wills Attending Provider: Fanta Jeffers Quality VTE Deep Vein Thrombosis/Pulmonary Embolism Present on Admission: No
[2023-11-21 11:52] VITALS: BP 113/71; PULSE 86; RESP 19; TEMP 36.4; O2SAT 96
--- NOTE | 2023-11-21 14:10 | PT.IPTN ---
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) Surgery Performed Operation Date: 11/20/23 08:45 Actual Procedures p open Ankle Fusion & subtalar joint fusion with hindfoot nail, fibular osteotomy and bone graft autograft or allograft, talonavicular and calcaneocubiod fusions,(Left) - Fanta Jeffers MD s Possbile Achilles Tendon Lengthening, peroneal tendon excision and flexor tendon release or lengthening as indicated(Left) - Fanta Jeffers MD Physical Therapy Treatment Note M2 PT-IP Current Condition Start: 11/21/23 08:24 Freq: NEEDED Status: Active Protocol: Document 11/21/23 08:58 MB (Rec: 11/21/23 10:09 MB [id number]) Physical Therapy Current Condition Current Condition Evaluation Date 11/21/23 Treatment Diagnosis L ankle fusion M3 PT-IP Subjective Start: 11/21/23 08:24 Freq: NEEDED Status: Active Protocol: Document 11/21/23 14:36 TS (Rec: 11/21/23 14:43 TS [id number]) Subjective Physical Therapy Visit Type Type Treatment Note Visit Start Time 14:10 Visit Stop Time 14:35 Notes Spouse present Number of GLASS FORMING ENGINEER Visits 1 Physical Therapy Visit Comments Patient Comments Pt found resting in bed, is agreeable to PT. Therapy Pain Assessment Pain When Pain Assessed At Rest Pain Present Pain Present Pain Reported M4 PT-IP Mobility and Gait Start: 11/21/23 08:24 Freq: NEEDED Status: Active Protocol: Document 11/21/23 14:36 TS (Rec: 11/21/23 14:43 TS [id number]) PT-Bed Mobility Assessment Supine to Sit Supine to Sit Contact Guard Assistance,1 Person Assistance,Head of Bed Elevated Sit to Supine Sit to Supine Minimal Assistance,1 Person Assistance Scooting Scooting to Edge of Bed Standby Assistance PT-Transfer Assessment Sit to and From Stand Sit to and from Stand Contact Guard Assistance,1 Person Assistance,Use of Upper Extremities Equipment Transfer Assistive Device Gait Belt,Front Wheeled Walker Comments Mobility Comments Supine to sit CGA for LLE support. STS with FWW CGA from spouse, spouse donned gait belt prior to mobility. She ambulated ~20'CGA from spouse with NWB on LLE and FWW. She sat in w/c. Spouse and pt educated on function of w/c. She propelled in chair ~60'SBA with cues for operation. Sit to supine into bed CGA from spouse. Pt was left in bed, all needs met, RN notified. Gait Assessment Gait Gait Assistance Required: Contact Guard Assist,1 Person Assist Distance (Feet) 20 Able to Maintain Weight Bearing Status Yes During Gait Assistive Devices Assistive Device Gait Belt,Front Wheeled Walker Gait Deviations General Gait Pattern Decreased Stride Length, Decreased Feet Clearance, Flexed Trunk,Step-to Gait Factors Limiting Gait Function Factors Limiting Gait Function Decreased Activity Tolerance Comments Gait Comments See mobility comments PT-Balance Assessment Sitting Balance and Reactions Static Sitting Balance Ability Good Dynamic Sitting Balance Ability Good Standing Balance and Reactions Static Standing Balance Ability Fair Dynamic Standing Balance Ability Fair Device Used FWW M5 PT-IP Objective Assessments Start: 11/21/23 08:24 Freq: NEEDED Status: Active Protocol: Document 11/21/23 08:58 MB (Rec: 11/21/23 10:09 MB [id number]) Orientation Orientation/Cognition Level of Alertness Alert Orientation Name,Age,Birthday,Month,Date, Year,Day of Week,Place, Situation Language Function Ability No Deficits Noted Safety Awareness Understands Safety Issues Memory Description No Deficits Noted Gross Range of Motion Upper Extremity ROM Impairments Defer to OT Lower Extremity ROM Assessment Left Impaired Impairments Left ankle is casted Strength Lower Extremity Strength Assessment Left Impaired Comments Strength Comments L ankle casted and right LE is functional M6 PT-IP Treatment Start: 11/21/23 08:24 Freq: NEEDED Status: Active Protocol: Document 11/21/23 14:36 TS (Rec: 11/21/23 14:43 [id number]) Physical Therapy Treatment Education Education Provided Weight Bearing Status,Safety M7 PT-IP Assessment and Plan Start: 11/21/23 08:24 Freq: NEEDED Status: Active Protocol: Document 11/21/23 14:36 TS (Rec: 11/21/23 14:43 TS [id number]) PT Summary Assessment and Plan Potential Rehabilitation Potential Good Summary Impairments ROM,Strength,Balance,Bed Mobility,Transfers,Gait, Activity Tolerance Progress Towards Goals Progressing Toward Goals Assessment Summary Mame is doing well with her mobility. She is CGA for bed mobility and requires support of LLE. She progressed her gait to ~20' with use of FWW. She demonstrates good safety awareness of TT/NWB on LLE. She was educated on the use of the w/c. Spouse was instructed in and performed donning of gait belt, STS, gait, bed mobility and w/c operation. PT is recommending Home 24/ with HHPT. Goals Bed Mobility Goal Independent Transfer Goal Standby Assistance,Front Wheeled Walker Gait Goal Standby Assistance,Front Wheel Walker Gait Distance 25 Other Goals Pt will mobilize in w/c managing mobility for at least 50' including turns and retropulsion with no more than superv. Days to Meet Goals 2 Frequency of Treatment Frequency Of Treatment Twice a Day Treatment Plan Physical Therapy Treatment Plan Bed Mobility Training,Transfer Training,Gait Training, Therapeutic Exercise,Balance Retraining,Post Op Education, Discharge Planning,Hot or Cold Pack,Neuromuscular Re-ed, Coordination Retraining,Manual Therapy Weight Bearing Status Weight Bearing Status Touch Down Weight Bearing Allowed Weight Bearing Amount (enter % LLE or #) (%) Recommendations To Nursing Amount of Assist Needed 1 Person Assist Discharge Recommendations PT Discharge Recommendations Home with 24 Assist Available,Home Health Transportation Needs at Discharge Private Vehicle
--- NOTE | 2023-11-21 14:28 | CM.DANOTE ---
Initial DCP Assessment Note Pt is a 73 yo female, resident of [place], now POD#1 from ankle surgery PCP: Valerie Wills Payer: Alton CASTELLON Reviewed chart, pt discussed in multidisciplinary rounds this morning. Therapy has cleared pt for return home w/family to assist and pt has planned for home, DC order from Ortho in place. No barriers identified at this time to patient's safe discharge home w/family to assist; close outpatient f/u recommended. CM team will plan to follow clinical course closely in case any DC needs or concerns arise. SHANIQUE Carter Discharge Planning/Care Management CM Discharge Assessment Start: 11/21/23 14:25 Freq: Status: Active Protocol: Document 11/21/23 14:26 ISABELLE (Rec: 11/21/23 14:28 ISABELLE [id number]) Discharge Planning Assessment Assigned Teacher [employer] SHANIQUE Bernard DPOA/Assigned Designee Name Oumar Zamarripa, spouse Contact Information [phone] Advance Directives? No History Provided By Patient,Medical Record Prior Living Arrangements House Household Members spouse Type of transporation used prior to Relies on Others admit Independent with ADL's Yes Is patient alert and oriented? Yes Needs Assistance With Home Chores / Shopping DME Already Rented / Owned Other Comment 4WW Patient/Family Preference OP PT Therapy Barriers to Discharge No Discharge Plan Home Transportation Arrangement Family Referrals Initiated None needed
--- NOTE | 2023-11-21 16:42 | PC.NURSE ---
Patient is A&OX4, VSS, afebrile. She is able to tolerate working with PT. BP slightly low and a.m. antihypertensive medication held.She denies dizziness/n/v and is able to tolerate breakfast well. She is cleared by PT /OT, however after sitting up in the chair for x1 hour her LLE becomes swollen +3. She is assisted back to bed to elevate LLE and Ice applied. She reports pain increased with swelling but shortly after improving +CMS to L foot, but bandage tight. MD Mason notified and per orders changed dian wrap and small slight cut in soft cast. She reports discomfort improved and tolerates afternoon therapy session well with stairs. She is medically cleared and physically cleared from PT/OT. PA and notified as patient needing home pain medications resent. At the end of the afternoon patient worried that [facility] would close before they could get there. Scripts re printed and handed to patient with discharge instructions. Patient and verbalize understanding of site care, activity limitations, medications, s/sx of complication as well as follow up appointment. She is escorted by TOY MAKER via w/ch with paperwork to [facility] for discharge this afternoon at 1600 pm.
== END 2023-11-21 16:00 | disposition home or self-care (01) ==
LOC: OR 07:07 → AC 07:08
PROVIDERS: PCP Internal Medicine; Referring Provider Orthopaedic Surgery Foot and Ankle Surgery; Visit Provider Orthopaedic Surgery Foot and Ankle Surgery
PROC: (CPT 27870; principal; 2023-11-20 08:45)
PROC: (CPT 27685; 2023-11-20 08:45)
DX: M19.072 Primary osteoarthritis, left ankle and foot (principal); M67.02 Short Achilles tendon (acquired), left ankle; Q66.02 Congenital talipes equinovarus, left foot; G89.18 Other acute postprocedural pain
CPT/HCPCS: 28705; 28730; 27707; 27685; 36415; 64450; 73610; 76000; 80048; 85025; 97161; 97165; 97530; 97535; C1713; J0136; J0171; J0330; J0690; J1170; J2250; J2405; J2704; J3010

== ENCOUNTER → 2024-09-01 12:33 | Outpatient (CLI) | payer OTHER, SELFPAY ==
[2023-11-20 17:57] VITALS: BMI 26.6
--- NOTE | 2024-09-01 12:34 | DI.ECHO.S_ITS ---
[facility]+ [facility] : : [address] : : [place] : : [id number] : : Phone: [phone] Echocardiogram Report + + :Name: RIP DURANT Study Date: 09/01/2024 Height: 65 in : :[facility] ReadingLocation: Weight: 154 lb : : Gender: Female BSA: 1.8 m2 : :: 1950 Age: 74 yrs BP: 160/119 mmHg: :Reason For Study: S/P SADDLE PE : :Ordering Physician: DEVIN, : :URSULA Performed By: Jignesh Goldsmith : :Referring: URSULA BELTRAN : + + Interpretation Summary The patient was in normal sinus rhythm during the exam. The patient had frequent PVCs during the exam. The left ventricle is normal in size. Patient has frequent PVCs. Difficult to comment upon LV function however LV function appears to be reduced. Overall, appears to be in 40 to 45% range with mild to moderate global hypokinesis as well as significant LV dyssynchrony during PVCs. The right ventricle is normal in size and function.TAPSE: 2.6 cm There is mild mitral regurgitation. There is mild tricuspid regurgitation. The right ventricular systolic pressure is estimated to be at least 28 mmHg based on an estimated right atrial pressure of 3 mm Hg. The aortic root is mildly dilated. The ascending aorta is mild-moderately enlarged. BP: 160/119 mmHg. Send a message to triage nurse to check on the patient. Procedure: A two-dimensional transthoracic echocardiogram with color flow and Doppler was performed. The study quality was technically good. There is no prior echocardiogram noted for this patient. The heart rate ranged between 46- 83 bpm during the study. The patient was in normal sinus rhythm during the exam. The patient had frequent PVCs during the exam. Left Ventricle: The left ventricle is normal in size. There is normal left ventricular wall thickness. There is no thrombus. Patient has frequent PVCs. Difficult to comment upon LV function however LV function appears to be reduced. Overall, appears to be in 40 to 45% range with mild to moderate global hypokinesis as well as significant LV dyssynchrony during PVCs. There are no focal wall motion abnormalities. MV E/A: 0.48 Med Peak E' John: 2.5 cm/sec E/E' med: 18.1. Right Ventricle: The right ventricle is normal in size and function. Atria: The left atrial size is normal. Right atrial size is normal. There is no Doppler evidence for an interatrial shunt. Mitral Valve: There is mild mitral annular calcification. There is mild mitral regurgitation. Aortic Valve: The aortic valve is trileaflet. The aortic valve is mildly calcified. The aortic valve opens well. There is no aortic valve stenosis. No aortic regurgitation is present. Tricuspid Valve: The tricuspid valve is normal. There is mild tricuspid regurgitation. The right ventricular systolic pressure is estimated to be at least 28 mmHg based on an estimated right atrial pressure of 3 mm Hg. Pulmonic Valve: The pulmonic valve is not well seen, but is grossly normal. There is no pulmonic valvular regurgitation. Great Vessels: The aortic root is mildly dilated. The ascending aorta is mild-moderately enlarged. The pulmonary artery is normal size. The IVC is of normal diameter and collapses greater than 50% with a sniff. This suggests a low right atrial pressure of 3 mm Hg. Pericardium/ Pleura There is no pericardial effusion. There is no pleural effusion. MMode/2D Measurements & Calculations LVIDd: 4.5 cm LVOT diam: 2.0 cm LVIDs: 3.2 cm Ao root diam: 4.0 cm FS: 29.2 % asc Aorta Diam: 4.2 cm EPSS: 1.3 cm Ao Arch Diam (Prox Trans): 1.8 cm IVSd: 1.0 cm LVPWd: 1.0 cm LV morales. diameter/BSA (cm/m^2): 2.6 LV sys. diameter/BSA (cm/m^2): 1.8 LA A2 area: 19.7 cm2 RA long axis: 5.4 cm LA A4 area: 16.0 cm2 RA area: 13.6 cm2 LA length (vol): 5.6 cm RA vol: 29.5 ml LA vol: 47.4 ml RA : 16.6 ml/m2 LA vol index: 26.8 ml/m2 IVC diam: 1.5 cm RVD1 (basal): 3.2 cm RVD2 (mid): 3.0 cm TAPSE: 2.6 cm Doppler Measurements & Calculations Ao V2 max: 199.6 cm/sec LVOT Max John: 125.9 cm/sec Ao V2 mean: 127.1 cm/sec LV V1 max P.3 mmHg Ao max P.9 mmHg LV V1 VTI: 28.6 cm Ao mean P.5 mmHg ALICE(I,D): 2.4 cm2 Ao V2 VTI: 38.4 cm ALICE(V,D): 2.1 cm2 sev ratio: 0.74 ALICE indexed to BSA (cm^2/m^2): 1.4 MV E max john: 46.2 cm/sec TR max john: 249.8 cm/sec MV A max john: 95.9 cm/sec TR max P.0 mmHg MV E/A: 0.48 PA V2 max: 102.3 cm/sec Med Peak E' John: 2.5 cm/sec PA V2 mean: 75.9 cm/sec E/E' med: 18.1 PA mean P.5 mmHg Lat Peak E' John: 6.3 cm/sec PA pr(Accel): 46.5 mmHg E/E' lat: 7.3 E/e' average: 12.7 MV dec time: 0.22 sec SV(LVOT): 94.0 ml Reading Physician:03:31 PM
== END ==
LOC: ECHO 12:34
PROVIDERS: Referring Provider Student in an Organized Health Care Education/Training Program; Visit Provider Student in an Organized Health Care Education/Training Program
DX: I26.92 Saddle embolus of pulmonary artery without acute cor pulmonale (principal); I08.1 Rheumatic disorders of both mitral and tricuspid valves; I77.810 Thoracic aortic ectasia; I77.89 Other specified disorders of arteries and arterioles
CPT/HCPCS: 93306

== ENCOUNTER → 2025-02-03 13:06 | Outpatient (CLI) | payer OTHER, SELFPAY ==
[2023-11-20 17:57] VITALS: BMI 26.6
--- NOTE | 2025-02-03 13:07 | DI.NM.S_ITS ---
PROCEDURE: NM LILIAN PERF SPECT R&S PHARM Rest and pharmacological stress myocardial perfusion SPECT with gated imaging and ejection fraction RADIOPHARMACEUTICAL: 25.9 mCi Tc-99m tetrafosmin IV at rest and 25.3 mCi Tc-99m tetrafosmin IV at peak effect of pharmacological stress. [id number]-[id number] was performed. INDICATIONS: CARDIOMYOPATHY TECHNIQUE: Radiopharmaceutical was injected at peak stress test, and also at rest. SPECT images were obtained. SPECT myocardial perfusion images were displayed in short axis, horizontal long axis, and vertical long axis views. Gated images were reviewed using [employer] software. COMPARISON: None. CARDIAC STRESS: A pharmacologic stress test was performed under the supervision of an attending staff, using an infusion of regadenoson 0.4 mg IV. Hemodynamic data: There is normal blood pressure and heart rate response to pharmacologic stress. Symptoms: The patient denied anginal chest pain. EKG: No diagnostic changes of ischemia; frequent PVCs noted. FINDINGS: Raw data: There is good myocardial uptake of radiotracer. No significant motion artifacts. Left ventricle function: Gated images demonstrate normal left ventricular wall thickening. No segmental wall motion abnormalities. No transient ischemic dilation; TID is 0.81 (normal less than 1.3). Left ventricle resting end diastolic volume is 118 mL. Left ventricle stress ejection fraction is 75% ; normal range is above 45%. Myocardial perfusion: There is normal distribution of activity in the right and left ventricular myocardium. No fixed or reversible perfusion defects. IMPRESSION: Low risk study. No evidence of pharmacologic induced ischemia or scar. Normal LV size and function. Frequent PVCs noted throughout the test. Dictated by: Kirsten Eddy D.O. on 02/11/2025 at 16:27 Approved by: Kirsten Eddy D.O. on 02/11/2025 at 16:31
== END ==
LOC: NUCM 13:06
PROVIDERS: Referring Provider Internal Medicine Cardiovascular Disease; Visit Provider Internal Medicine Cardiovascular Disease
DX: I42.9 Cardiomyopathy, unspecified (principal)
CPT/HCPCS: 78452; 93017; A9502; J2785